=== PATIENT | female | born 1985 | race Caucasian/White ===

== ENCOUNTER 2016-08-25 15:57 | Emergency (ER) | payer OTHER ==
[~2016-08-25] VITALS: Ht 162.6 cm; Wt 86.4 kg
[~2016-08-25 15:57] MED LIST: ACET50TA PO; NUPE1OIN2 TOP; PRENTAB9 PO
[2016-08-25] MEDS ORDERED: [UNRECOGNIZED DRUG - OTHER] PO (16:17)
[2016-08-25] MEDS ORDERED: METOCLOPRAMIDE 10 MG TAB PO ONE (16:30)
[2016-08-25] MEDS ORDERED: KETOROLAC 60 MG/2 ML VIAL (J1885) IM ONE (16:30)
[2016-08-25] MEDS ORDERED: ONDANSETRON 4 MG ORAL DISINTEGRATING TAB (S0181) PO ONE (16:30)
[2016-08-25] MEDS ORDERED: REGL10TA6 PO (16:32)
[2016-08-25] MEDS ORDERED: CLAR1TAB2 PO (16:32)
[2016-08-25] MEDS ORDERED: ZOFR4TAB3 PO (16:32)
[2016-08-25] MEDS ORDERED: NAPR500T PO (16:32)
[2016-08-25] MEDS ORDERED: MUCI600T37 PO (16:32)
[2016-08-25 17:28] VITALS: BP 117/70
[2016-08-25] MEDS ORDERED: ZITHTAB PO (17:31)
== END 2016-08-25 17:36 | disposition home or self-care (01) ==
LOC: M ED 15:57
DX: R51 Headache (principal); J01.90 Acute sinusitis, unspecified; R11.2 Nausea with vomiting, unspecified; Z87.891 Personal history of nicotine dependence; Z88.0 Allergy status to penicillin
CPT/HCPCS: 96372; 99282; J1885